=== PATIENT | male | born 1970 | race Caucasian/White ===

== ENCOUNTER 2019-04-04 11:36 | Emergency (ER) | payer MEDICAID ==
[~2019-04-04] VITALS: Ht 182.9 cm; Wt 81.6 kg
[2019-04-04 11:48] VITALS: Ht 182.9 cm; Wt 81.6 kg
[2019-04-04 12:45] VITALS: BP 129/75
== END 2019-04-04 13:18 | disposition home or self-care (01) ==
LOC: ED 11:36 → EDBD 11:36 → ED 13:18
DX: F10.129 Alcohol abuse with intoxication, unspecified (principal); S00.01XA Abrasion of scalp, initial encounter; X58.XXXA Exposure to other specified factors, initial encounter; Y93.89 Activity, other specified; Y92.89 Other specified places as the place of occurrence of the external cause; Y99.8 Other external cause status; Y90.9 Presence of alcohol in blood, level not specified

== ENCOUNTER 2019-04-18 13:37 | Emergency (ER) | payer OTHER ==
[~2019-04-18] VITALS: Ht 185.4 cm; Wt 95.3 kg
[2019-04-18 14:12] VITALS: Ht 185.4 cm; Wt 95.3 kg
[2019-04-18 14:28] LABS: CALCIUM 7.8 mg/dL (8.5-10.1); CARBON DIOXIDE 26.1 mmol/L (21-32); CHLORIDE SERUM 98 mmol/L (98-107); CREATININE SERUM 0.9 mg/dL (0.7-1.3); GFR1 > 60 mL/min; GLUCOSE SERUM 115 mg/dL (74-106); POTASSIUM SERUM 3.6 mmol/L (3.5-5.1); SODIUM SERUM 140 mmol/L (136-145)
[2019-04-18 14:29] LABS: BASOPHIL % 0.4 % (0-2)
[2019-04-18 14:36] LABS: ALBUMIN 3.9 g/dL (3.4-5.0); ALKALINE PHOSPHATASE 115 U/L (46-116); ALT/SGPT 138 U/L (16-63); AST/SGOT 317 U/L (15-37); BILIRUBIN TOTAL 1.1 mg/dL (0.20-1.00); PLATELET COUNT 128 x10^3mcL (130-400); RED CELL DISTRIBUTION WIDTH 14.7 % (11.5-14.5); TOTAL PROTEIN, SERUM 7.6 g/dL (6.4-8.2)
[2019-04-18 19:57] VITALS: BP 96/59
== END 2019-04-18 19:57 | disposition home or self-care (01) ==
LOC: ED 13:37
PROVIDERS: Emergency Medicine
DX: F10.129 Alcohol abuse with intoxication, unspecified (principal); R11.10 Vomiting, unspecified
CPT/HCPCS: G0480; J2060; J7030; Q0092

== ENCOUNTER 2019-09-05 12:34 | Emergency (ER) | payer OTHER ==
[~2019-09-05] VITALS: Ht 182.9 cm; Wt 96.6 kg
[2019-09-05 12:47] VITALS: Ht 182.9 cm; Wt 96.6 kg
[2019-09-05 13:18] VITALS: BP 136/89
== END 2019-09-05 13:18 | disposition home or self-care (01) ==
LOC: ED 12:34
DX: S61.211D Laceration without foreign body of left index finger without damage to nail, subsequent encounter (principal); W23.0XXD Caught, crushed, jammed, or pinched between moving objects, subsequent encounter